=== PATIENT | male | born 1950 | race Caucasian/White ===

== ENCOUNTER 2019-04-02 07:07 | Inpatient (IN) | payer MEDICARE, OTHER ==
[2019-03-21 09:00] LABS: HEMATOCRIT 42.6 % (42.0-52.0); MCH 33.5 pg (26.0-34.0); MCHC 32.9 g/dL (28.0-37.0); MCV 101.9 fL (80.0-100.0); MPV 9.8 fl. (7.2-11.1); RBC 4.18 mil/uL (4.50-6.00)
[2019-03-21 09:00] LABS: URINE BILIRUBIN NEGATIVE (Negative); URINE BLOOD TRACE (Negative); URINE CLARITY CLEAR; URINE COLOR YELLOW; URINE GLUCOSE-RANDOM NEGATIVE (Negative); URINE KETONES NEGATIVE (Negative); URINE LEUKOCYTES-REFLEX NEGATIVE (Negative); URINE PROTEIN NEGATIVE (Negative); URINE UROBILINOGEN 0.2 E.U./dl (0.2-1.0)
[2019-03-21 09:05] LABS: URINE NITRITE-REFLEX POSITIVE (Negative)
[2019-03-21 09:13] LABS: ALBUMIN 3.8 g/dL (3.4-5.0); CALCIUM 8.7 mg/dL (8.5-10.1); CREATININE 1.7 mg/dL (0.6-1.3); POTASSIUM 4.1 mmol/L (3.5-5.1); TOTAL BILIRUBIN 0.9 mg/dL (<0.1-1.0); TOTAL PROTEIN 6.6 g/dL (6.4-8.2)
[2019-03-21 09:13] LABS: CASTS None Seen /LPF (None Seen); CRYSTALS None Seen /LPF (None Seen); MUCUS 0-3 Light strn/LPF (None Seen); SQUAMOUS 0-3 Few /LPF (0-3); URINE RBC 0-2 Rare /HPF (0-2)
[2019-03-21 09:54] LABS: INR 1.1; PROTIME 11.3 Seconds (9.20-11.50)
[~2019-04-02] VITALS: Ht 175.3 cm; Wt 77.1 kg
[~2019-04-02 07:07] MED LIST: ACETAMINOPHEN325 M1 PO; ACYCLOVIR 200200 MG PO; BACTRIM DS TAB1 EAC1 PO; BIOTIN10000 MC1 PO; CALCIUM CARBON600 MG PO; CELLCEPT 250 M250 M1 PO; ELIQUIS5 MG PO; FLOMAX0.4 MG PO; FUROSEMIDE 20 M20 MG PO; LEVOTHYROXINE150 MCG PO; LIPITOR 10 MG10 M1 PO; MIRTAZAPINE7.5 MG PO; PREDNISONE 10 M10 M1 PO; PROAIR HFA8.5 GM INH; PROGRAF1 MG PO; SUPER THERAVIT1 EACH PO; VITAMIN C500 M2 PO
[2019-04-02 10:30] VITALS: BP 129/85
[2019-04-02] MEDS ORDERED: MACROBID 100 M100 MG PO (10:43)
[2019-04-02 20:30] VITALS: BP 120/90
[2019-04-03] VITALS: BP 113/84
[2019-04-03 03:44] LABS: HEMATOCRIT 39.5 % (42.0-52.0); HEMOGLOBIN 12.9 gm/dL (14.0-18.0)
[2019-04-03 04:00] VITALS: BP 114/87
[2019-04-03 08:45] VITALS: BP 107/78
[2019-04-03] MEDS ORDERED: PERCOCET 5-3251 EACH PO ×2 (11:01→16:02)
[2019-04-03 11:47] VITALS: BP 114/87
[2019-04-03 15:35] VITALS: BP 114/87
--- NOTE | 2019-04-08 09:23 | OP ---
[facility] [address] [place] [address] OPERATIVE REPORT Name: COOPER ROSARIO Room: [address] [place] .R#: [id number] Admission: 04/02/19 Attend Phys: Elver Stringer Discharge: 04/03/19 Date of : 46 Report #: [id number] THIS REPORT FOR: //name// cc: Tony Arenas MD, Gregory MD ~ THIS REPORT FOR: //name// CC: Tony Menon DATE OF SERVICE: 04/02/2019 PREOPERATIVE DIAGNOSIS: Right hip osteoarthritis. POSTOPERATIVE DIAGNOSIS: Right hip osteoarthritis. PROCEDURE: Right total hip arthroplasty. SURGEON: Jatin Valencia II, DO FRAUD PREVENTION ANALYST: ANA Owens ANESTHESIA: General endotracheal. ESTIMATED BLOOD LOSS: 200 mL. ANTIBIOTICS: Ancef preoperatively. DRAINS: Medium Hemovac. COMPLICATIONS: None. CONDITION OF THE PATIENT: Stable to recovery room. IMPLANTS: Listed in operative record and progress note. BRIEF HISTORY: The patient is seen in the preoperative area. Preoperative H and P was performed. Site was marked, questions were answered. Risks and benefits were discussed with the patient in detail about surgery. The patient wished to proceed, assuming all risks. DESCRIPTION OF PROCEDURE: The patient was taken to the operative suite and placed supine on the operative table, given appropriate anesthesia. The patient's operative hip was placed in the Vernon table leg hou and sterilely prepped and draped in the supine position. Surgery began by [facility] [address] [place] [address] OPERATIVE REPORT Name: COOPER ROSARIO Ivette Room: [address] [place] .R.#: [id number] Admission: 04/02/19 Attend Phys: Elver Stringer Discharge: 04/03/19 Date of : 46 Report #: [id number] incision over the anterior aspect of the hip. This was carried down to the subcutaneous tissues. A small jing was made in the tensor fascia. It was then split along its fibers and retracted laterally. An H capsulotomy was then performed and careful hemostasis was maintained with electrocautery and Aquamantys. The head and neck cutting alignment guide was then checked with fluoroscopic guidance. Appropriate cut was made to the head and neck and this was removed. Attention was then turned to the acetabulum. Excess labrum and osteophytes were removed from around the acetabulum. It was then reamed in sequential fashion up to appropriate size. This showed excellent bleeding bone in excellent position on fluoroscopic guidance. The acetabular cup was then malleted into position and secured with cancellous screws. Metal liner was then applied. The patient's leg was then rotated and extended in the Vernon table to expose the femur. It was then broached in sequential fashion up to appropriate size. The appropriate neck was then trialed with appropriate head length and showed excellent fit and fill and excellent stability of the hip through all range of motion. These trials were removed. The final stem was then malleted into position and the final head and neck was then malleted into position. It was reduced in appropriate fashion, checked with C-arm for appropriate leg length and showed to have excellent leg length throughout the entire exam without evidence of dislocation upon range of motion and shuck testing. Wound was then copiously irrigated. Hemostasis was maintained with electrocautery and Aquamantys. The pain cocktail was injected. PRP gel was sprayed throughout internal aspects of the hip and drain was activated. The H capsulotomy was then closed with #1 Vicryl in [id number] fashion. The tensor fascia was then closed with #1 Vicryl in running fashion. Skin was closed with 2-0 Vicryl and running 3-0 Monocryl. Dermabond and sterile dressing applied. The patient transported to recovery room in stable condition. Counts were correct throughout the procedure. <ELECTRONICALLY SIGNED> By: Jatin Valencia II, DO 04/08/19 0923 [id number] Valencia II, DO /nt
== END 2019-04-03 16:45 | disposition home health service (06) | DRG 470 ==
LOC: M.PRE 07:07 → M.TBA 09:01 → M.ORTHSURG 09:01 → M.PRE 10:12 → M.ORTHSURG 18:13
PROVIDERS: Orthopaedic Surgery; ADMIT Internal Medicine
PROC: 0SR903A Replacement of Right Hip Joint with Ceramic Synthetic Substitute, Uncemented, Open Approach (ICD-10-PCS; principal; 2019-04-02)
DX: M16.11 Unilateral primary osteoarthritis, right hip (principal); I48.92 Unspecified atrial flutter; J84.9 Interstitial pulmonary disease, unspecified; I13.0 Hypertensive heart and chronic kidney disease with heart failure and stage 1 through stage 4 chronic kidney disease, or unspecified chronic kidney disease; I47.1 Supraventricular tachycardia; Z94.2 Lung transplant status; I35.8 Other nonrheumatic aortic valve disorders; N18.3 Chronic kidney disease, stage 3 (moderate); I50.9 Heart failure, unspecified; K21.9 Gastro-esophageal reflux disease without esophagitis; E03.9 Hypothyroidism, unspecified; F43.10 Post-traumatic stress disorder, unspecified; R97.20 Elevated prostate specific antigen [PSA]; Z88.1 Allergy status to other antibiotic agents; Z86.718 Personal history of other venous thrombosis and embolism